=== PATIENT | female | born 1995 | race African-American/Black ===

== ENCOUNTER 2016-10-30 11:01 | Emergency (ER) | payer MEDICAID ==
[~2016-10-30] VITALS: Ht 152.4 cm; Wt 44.5 kg
[~2016-10-30 11:01] MED LIST: FAMO-119 PO; FAMO20TA5 PO; GABA600T2 PO; NITR-65 PO; PHEN200T27 PO; PRD20T PO; SUCR1ORA5 PO; VNL37.5T PO
[2016-10-30 11:54] VITALS: BP 127/97
--- NOTE | 2016-10-30 13:05 | ED Abdominal Pain ---
General Chief Complaint: Abdominal/GI Problems Stated Complaint: ABD PAIN, HEADACHE Nursing Triage Note: States having diffuse abd pain starting this am. Denies n/v/d fever or urinary sx. Sepsis Screen: No Definite Risk Source of Information: Patient, Family (mom) Exam Limitations: No Limitations History of Present Illness Time Seen By Provider: 12:57 Initial Comments Patient brought to the ER by primary conveyance and her mother. She complained of pain on her left side as well as in her superpubic region is colicky in nature comes and goes and changes position every time. She is a not on control or any meds. She has no past medical history of note. Her doctor first daughter was born at 34 weeks and spent 31 days in the NICU for prematurity. She has no surgical history. Patient was unaware of her prior to her ER visit. She denies dysuria or discharge. She has no vaginal bleeding. Last menstrual period is September 16. This puts her at 6 weeks and 2 days. Allergies and Home Medications Allergies Coded Allergies: NSAIDS (Non-Steroidal Anti-Inflamma (Unverified Allergy, Unknown, 02/04/14) Home Medications Famotidine 20 Mg Tablet, 20 MG PO BID, #30 Ref 0 Prescribed by: GELACIO WHITLOCK on 12/23/14 2254 Gabapentin 600 Mg Tablet, 1 TAB PO BID, #60 (Reported) Sucralfate 1 Gm/10 Ml Oral.susp, 1 GM PO QID, #1 Ref 0 Prescribed by: GELACIO WHITLOCK on 12/23/14 2254 Review of Systems Constitutional: No chills, No diaphoresis, No fever, No malaise EENTM: No Blurred Vision, No Ear Pain Respiratory: Denies Cough, Denies Shortness of Air, Denies Wheezing Cardiovascular: Denies Chest Pain, Denies Edema Gastrointestinal: See HPI, Denies Abdomen Distended, Abdominal Pain, Denies Constipated, Denies Diarrhea, Denies Nausea, Denies Poor Appetite, Denies Poor Fluid Intake, Denies Vomiting Genitourinary: Denies Burning, Denies Discharge, Denies Drainage, Denies Hematuria, Denies Other (vaginal bleeding) Musculoskeletal: No back pain, No joint pain Skin: No pruritus, No rash Psychiatric/Neurological: Denies Headache, Denies Numbness, Denies Paresthesia Past Ukekhzc-Qzhzko-Tijyrp Hx Patient Social History Alcohol Use: Denies Use Recreational Drug Use: No Smoking Status: Never a Smoker 2nd Hand Smoke Exposure: No Recent Foreign Travel: No Contact w/Someone Who Travel: No Recent Infectious Disease Expo: No Recent Hopitalizations: No Immunizations Up To Date Tetanus Booster (TDap): More than 5yrs PED Vaccines UTD: Yes Seasonal Allergies Seasonal Allergies: No Surgeries HX Surgeries: Yes Surgeries: Ear Surgery Respiratory Hx Respiratory Disorders: Yes Respiratory Disorders: Asthma Cardiovascular Hx Cardiac Disorders: No Neurological Hx Neurological Disorders: Yes Neurological Disorders: Headaches /Migraines Genitourinary Hx Genitourinary Disorders: No Gastrointestinal Hx Gastrointestinal Disorders: Yes (CHRONIC EPIGASTRIC PAIN) Musculoskeletal Hx Musculoskeletal Disorders: No Endocrine Hx Endocrine Disorders: No HEENT HX ENT Disorders: No Cancer Hx Cancer: No Psychosocial Hx Psychiatric Problems: Yes Behavioral Health Disorders: Depression Integumentary HX Skin/Integumentary Disorder: No Blood Transfusions Hx Blood Disorders: No Family Medical History Significant Family History: No Pertinent Family Hx Physical Exam Vital Signs VS - Last 72 Hours, by Label 10/30/16 11:54 Temp 97.4 Pulse 83 Resp 18 B/P (MAP) 127/97 Pulse Ox 99 Capillary Refill : Less Than 3 Seconds General Appearance: WD/WN, no apparent distress HEENT: PERRL/EOMI, pharynx normal (mucosa is dry) Respiratory: lungs clear, normal breath sounds Cardiovascular: normal peripheral pulses, regular rate, rhythm, no edema Peripheral Pulses: 4+ Dorsalis Pedis (R), 4+ Left Dors-Pedis (L) Gastrointestinal: normal bowel sounds, non tender, soft Extremities: non-tender, no pedal edema, normal capillary refill Back: normal inspection, no CVA tenderness Neurologic/Psychiatric: alert, oriented x 3 Skin: normal color, warm/dry Progress/Results/Core Measures Results/Orders Lab Results Laboratory Tests Test 10/30/16 11:51 Range/Units Urine Color YELLOW Urine Clarity SLIGHTLY CLOUDY Urine pH 6 5-9 Urine Specific Delta 1.020 1.016-1.022 Urine Protein 2+ H NEGATIVE Urine Glucose (UA) NEGATIVE NEGATIVE Urine Ketones NEGATIVE NEGATIVE Urine Nitrite NEGATIVE NEGATIVE Urine Bilirubin NEGATIVE NEGATIVE Urine Urobilinogen 4 H NORMAL MG/DL Urine Leukocyte Esterase 1+ H NEGATIVE Urine RBC (Auto) 1+ H NEGATIVE Urine RBC NONE /HPF Urine WBC RARE /HPF Urine Squamous Epithelial Cells 25-50 H /HPF Urine Crystals NONE /LPF Urine Bacteria FEW H /HPF Urine Casts NONE /LPF Urine Mucus MODERATE H /LPF Urine Culture Indicated NO My Orders Orders - MEME WEI Ns Iv 500 Ml (Sodium Chloride 0.9%) (10/30/16 13:10) Medications Given in ED Current Medications Medications Dose Ordered Sig/Avtar Route Start Time Stop Time Status Last Admin Dose Admin Sodium Chloride 500 ml @ 0 mls/hr Q0M ONCE IV 10/30/16 13:10 10/30/16 13:12 DC 10/30/16 13:19 500 MLS/HR Vital Signs/I&O Vital Sign - Last 12Hours 10/30/16 11:54 Temp 97.4 Pulse 83 Resp 18 B/P (MAP) 127/97 Pulse Ox 99 Blood Pressure Mean: 107 Point of Care Testing Urine -Bedside: Positive Progress Note #1: Time: 13:17 Progress Note UTI versus round leg pain. The patient's only 6 weeks by LMP. We will allow her to follow up with [facility] and establish her OB care. She is Geronimo seen there for medical care. There is no vaginal bleeding or discharge or other reason to do further extensive exams or ultrasound this time. Progress Note #2: Time: 18:48 Progress Note Patient told the nurse that she declined to wait around for the results of her urinalysis because she was hungry and so she left AMA. Her urinalysis was negative for infection. She already has plans in place to follow up with her primary care and establish for OB care at [facility] so there is really nothing further to be done at that time. Departure Impression Impression: Primary Impression: Qualified Codes: Z3A.01 - Less than 8 weeks gestation of Additional Impression: Colicky abdominal pain Disposition: 01 HOME, SELF-CARE (AMA) Condition: Stable Departure-Patient Inst. Decision time for Depature: 18:49 Referrals: [facility] (PCP/Family) Primary Care Physician Patient Instructions: No Instuctions Given Scripts Vit/Iron Fumarate/FA ( Vitamins Tablet) 1 Each Tablet 1 EACH PO DAILY for 30 Days, #30 TAB 0 Refills Prov: MEME WEI 10/30/16 Copy Copies To 1: NESHA POWELL DO MEME WEI Oct 30, 2016 13:05
[2016-10-30] MEDS ORDERED: NS IV 500 ML 500 ML IV ONE (13:10)
[2016-10-30 13:25] LABS: BILIRUBIN,URINE NEGATIVE (NEGATIVE); KETONES,URINE NEGATIVE (NEGATIVE); LEUKOCYTE ESTERASE ,URINE 1+ (NEGATIVE); NITRITE,URINE NEGATIVE (NEGATIVE); PH,URINE 6 (5-9); PROTEIN,URINE 2+ (NEGATIVE); SQUAMOUS EPITHELIAL CELL,UR 25-50 /HPF; UROBILINOGEN,URINE 4 MG/DL (NORMAL); WBC,URINE RARE /HPF
[2016-10-30] MEDS ORDERED: PREN1TAB19 PO (18:50)
== END 2016-10-30 13:55 | disposition left against medical advice (07) ==
LOC: EDUNIT# 11:01 → ER 11:04
DX: R10.84 Generalized abdominal pain (principal); J45.909 Unspecified asthma, uncomplicated; G43.909 Migraine, unspecified, not intractable, without status migrainosus; F32.9 Major depressive disorder, single episode, unspecified; Z98.890 Other specified postprocedural states; Z33.1 Pregnant state, incidental
CPT/HCPCS: 81000; 84703

== ENCOUNTER 2016-12-10 14:18 | Emergency (ER) | payer MEDICAID ==
[~2016-12-10] VITALS: Ht 154.9 cm; Wt 54.4 kg
[~2016-12-10 14:18] MED LIST changes: +PREN1TAB19 PO
--- OUTSIDE RECORDS SUMMARY | 2016-12-10 14:31 | XMS REPORT | Clinical Summary ---
Author Author [facility] Organization [facility] Address Unknown Phone Unavailable Care Team Providers Care Computer Operations Specialist Name Role Phone PCP Unavailable Source Comments Some departments are not documenting in the electronic medical record. If you do not see the information that you expected, contact Release of Information in the Health Information Management department at [phone] for further assistance in locating additional records.[facility] Allergies Active Allergy Reactions Severity Noted Date Comments Nsaids (Non-Steroidal ANAPHYLAXIS 10/23/2013 Anti-Inflammatory Drug) Sumatriptan-Naproxen UNKNOWN 07/26/2012 Current Medications Prescription Sig. Disp. Refills Start End Date Status Date imiquimod(+) (ALDARA) 5 % Apply to affected area 4 Each 3 09/20/19 Active topical creamIndications: three times weekly. 14 Keloid VENLAFAXINE HCL (EFFEXOR Take by mouth. Active PO) GABAPENTIN (NEURONTIN PO) Take by mouth. Active Active Problems No known active problems Social History Tobacco Use Types Packs/Day Years Used Date Current Every Day Smoker Cigarettes 0.25 Smokeless Tobacco: Never Used Tobacco Cessation: Counseling Given: No Alcohol Use Drinks/Week oz/Week Comments No Sex Assigned at Date Recorded Not on file Last Filed Vital Signs Vital Sign Reading Time Taken Blood Pressure 104/65 10/06/2014 1:37 PM CDT Pulse 81 10/06/2014 1:37 PM CDT Temperature 36.7 C (98.1 F) 10/06/2014 1:37 PM CDT Respiratory Rate - - Oxygen Saturation 99% 10/06/2014 1:37 PM CDT Inhaled Oxygen - - Concentration Weight 45.8 kg (101 lb) 10/06/2014 1:37 PM CDT Height 152.4 cm (5') 10/23/2013 10:23 AM CDT Body Mass Index 19.73 10/06/2014 1:37 PM CDT Plan of Treatment Health Maintenance Due Date Last Done Comments PHYSICAL (COMPREHENSIVE) 2001 EXAM HPV VACCINES (#1) 2005 PERTUSSIS VACCINE 2005 TETANUS VACCINE 2011 CERVICAL CANCER SCREENING 2015 INFLUENZA VACCINE 12/03/2016 Results Not on filefrom Last 3 Months
--- OUTSIDE RECORDS SUMMARY | 2016-12-10 14:31 | XMS REPORT ---
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 Problem Generalized anxiety disorder F41.1 Active Problem Pain of left hand M79.642 Active Problem Dysthymic disorder F34.1 Active Problem Menorrhagia with regular cycle N92.0 Active Problem Anxiety F41.9 Active Problem Pain in right hand M79.641 Active Problem Primary insomnia F51.01 Active Assessment Mood altered F39 Active Problem Irregular menses N92.6 Active Problem Keloid scar L91.0 Active Problem Insomnia, unspecified G47.00 Active Medications Medication Code System Code Instructions Start Date End Date Status Dosage BusPIRone HCl [facility] [address]-47 10 mg Orally Twice a day for anxiety October 29, 2015 1 tablet Amitriptyline HCl [facility] [address]-76 50 MG Orally Once a day at bedtime 1 tablet Omeprazole [facility] [address]-67 40 mg Orally Once a day 1 capsule Neurontin [facility] [address]-68 600 MG Orally 2 times a day 1 tablet Ortho Tri-Cyclen (28) [facility] [address]-65 0.18/0.215/0.25 MG-35 MCG Orally Once a day 1 tablet Procedures Procedure Coding System Code Date Office Visit, Est Pt., Level 5 CPT-4 76546 Nov 05, 2015 Vital Signs Date/Time: Nov 05, 2015 Cardiac Monitoring Heart Rate 80 bpm Weight 97.9 lbs Height 60 in BMI 19.12 Index Blood Pressure Diastolic 68 mmHg Blood Pressure Systolic 100 mmHg Results No Known Results Summary Purpose [employer] Submission
--- OUTSIDE RECORDS SUMMARY | 2016-12-10 14:31 | XMS REPORT | Continuity of Care Document ---
Author Author [employer] Organization [facility] Address Unknown Phone Unavailable Care Team Providers Care Immigration Guard Name Role Phone [employer] Unavailable Unavailable Problems Medications Allergies, Adverse Reactions, Alerts Immunizations Results Vital Signs Encounters Location Location Details Encounter Type Encounter Number Reason For Visit Attending Provider ADM Date DC Date Status Source [facility] CLI [id number] keloid rt ear Saran Rast 12/23/201112/22 Active [facility] Procedures Plan of Care Social History Assessment and Plan Family History Value Date Source Advance Directives Order Name Results Value Date Source
--- OUTSIDE RECORDS SUMMARY | 2016-12-10 14:31 | XMS REPORT ---
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 Problem Anxiety F41.9 Active Problem Dyspepsia R10.13 Active Problem Dysthymic disorder F34.1 Active Problem Generalized anxiety disorder F41.1 Active Problem Dysthymia F34.1 Active Problem Primary insomnia F51.01 Active Problem Menorrhagia with regular cycle N92.0 Active Problem Pain of left hand M79.642 Active Problem Pain in right hand M79.641 Active Problem Irregular menses N92.6 Active Problem Keloid scar L91.0 Active Problem Insomnia, unspecified G47.00 Active Problem Headache R51 Active Medications Medication Code System Code Instructions Start Date End Date Status Dosage Remeron [facility] [address]-68 15 MG Orally Once a day Dec 05, 2015/2 tablet Results No Known Results Summary Purpose [employer] Submission
--- OUTSIDE RECORDS SUMMARY | 2016-12-10 14:32 | XMS REPORT ---
Author DARYL Pete Organization [employer] Address Unknown Phone Unavailable Care Team Providers Care Sizer Hand Name Role Phone DARYL IGLESIAS CP Unavailable Allergies No Known Allergies Problems Problem [...] Active Problem Primary insomnia F51.01 Active Assessment Dysthymic disorder F34.1 Active Problem Irregular menses N92.6 Active Problem Keloid scar L91.0 Active Assessment Generalized anxiety disorder F41.1 Active Problem Insomnia, unspecified G47.00 Active Medications No Known Medications Procedures Procedure Coding System Code Date Psychotherapy, patient &/family, 30 minutes, established patient CPT-4 36676 October 15, 2015 Results No Known Results Summary Purpose [employer] Submission
--- OUTSIDE RECORDS SUMMARY | 2016-12-10 14:32 | XMS REPORT ---
Author Author GLORIA MOHR [facility] [employer] Address Unknown Phone Unavailable Care Team Providers Care Clinical Trial Associate Name Role Phone GLORIA MOHR CP Unavailable Allergies, Adverse Reactions, Alerts Substance [...] Active Problem Primary insomnia F51.01 Active Assessment Anxiety F41.9 Active Problem Irregular menses N92.6 Active Assessment Generalized anxiety disorder F41.1 Active Problem Keloid scar L91.0 Active Assessment Dysthymic disorder F34.1 Active Problem Insomnia, unspecified G47.00 Active Medications No Known Medications Procedures Procedure Coding System Code Date Psychoanalysis, new patient CPT-4 89493 Nov 05, 2015 Results No Known Results Summary Purpose [employer] Submission
--- OUTSIDE RECORDS SUMMARY | 2016-12-10 14:32 | XMS REPORT ---
Author Author HUAN VARELA Organization [employer] Address Unknown Phone Unavailable Care Team Providers Care Manager Professional Development Name Role Phone HUAN VARLEA CP Unavailable Allergies No Known Allergies Problems Problem Type Condition ICD-9 Code Onset Dates Condition Status Problem Headache 784.0 Active Problem Insomnia, unspecified 780.52 Active Problem Hereditary elliptocytosis 282.1 Active Problem Irregular menstrual cycle 626.4 Active Problem Other and unspecified endocrine, nutritional, metabolic, and immunity disorders V77.99 Active Problem Keloid scar 701.4 Active Medications Medication Code System Code Instructions Start Date End Date Status Dosage Sudafed 12 Hour [facility] [address]-29 120 MG Orally every 12 hrs October 23, 2014 1 tablet as needed Results No Known Results Summary Purpose [employer] Submission
--- OUTSIDE RECORDS SUMMARY | 2016-12-10 14:32 | XMS REPORT ---
Author Author [facility] [employer] Address Unknown Phone Unavailable Care Team Providers Care Fish Grader Name Role Phone [facility] Unavailable Allergies, Adverse Reactions, Alerts Substance Reaction Event Type Treximet Info Not Available Drug Allergy Nsaids THROAT WAS SWELLING UP LAST TIME IN THE HOSPITAL Non Drug Allergy Problems Problem Type Condition Code Onset Dates Condition Status Assessment Encounter for screening for malignant neoplasm of cervix Z12.4 Active Assessment Encounter for Depo-Provera contraception Z30.42 Active Assessment Encounter for immunization Z23 Active Problem Headache 784.0 Active Assessment Keloid scar L91.0 Active Problem Insomnia, unspecified 780.52 Active Assessment Uterine tenderness N94.9 Active Assessment Routine screening for STI (sexually transmitted infection) Z11.3 Active Problem Hereditary elliptocytosis 282.1 Active Problem Irregular menstrual cycle 626.4 Active Assessment Well woman exam Z01.419 Active Problem Other and unspecified endocrine, nutritional, metabolic, and immunity disorders V77.99 Active Problem Keloid scar 701.4 Active Assessment Chest pain, unspecified R07.9 Active Assessment Dyspepsia K30 Active Assessment Irregular menses N92.6 Active Assessment Evaluation for contraceptive implant Z30.018 Active Assessment Depression, unspecified depression type F32.9 Active Assessment Other fatigue R53.83 Active Assessment Surveillance of contraceptive injection Z30.42 Active Assessment Cold intolerance R68.89 Active Assessment Anxiety F41.9 Active Assessment Tobacco use Z72.0 Active Medications Medication Code System Code Instructions Start Date End Date Status Dosage Depo-Provera [facility] [address]-23 150 MG/ML Intramuscular Every 3 months 1 ml Neurontin [facility] [address]-83 600 MG Orally 2 times a day 1 tablet Procedures Procedure Coding System Code Date TRICHOMONAS ASSAY W/OPTIC CPT-4 85627 May 07, 2015 ASSAY THYROID STIM HORMONE CPT-4 78378 May 07, 2015 URINE TEST CPT-4 37464 May 07, 2015 SPECIMEN HANDLING CPT-4 48876 May 07, 2015 THER/PROPH/DIAG INJ, SC/IM CPT-4 86027 May 07, 2015 DEPO PROVERA (150 MG/ML) CPT-4 J1050 May 07, 2015 No Charge CPT-4 66228 May 07, 2015 VENIPUNCT, ROUTINE* CPT-4 16155 May 07, 2015 Preventive Care Est Pt. Age 18-39 CPT-4 49241 May 07, 2015 SINGLE IMMUNIZATION ADMIN CPT-4 29466 May 07, 2015 FLUARIX QUAD (3 & UP)-GSK-2014 CPT-4 25893 May 07, 2015 Vital Signs Date/Time: May 07, 2015 Temperature 99.1 F Weight 99.5 lbs Height 60 in BMI 19.43 Index Blood Pressure Diastolic 68 mmHg Blood Pressure Systolic 98 mmHg Cardiac Monitoring Heart Rate 100 bpm Results Name Result Date Reference Range Unit Abnormality Flag TEST, URINE (IN HOUSE) ----RESULTS negative [id number] ----Lot # [id number] ----Control + [id number] ----Exp date [id number] ROUTINE VENIPUNCTURE Immunizations Vaccine Administration Date FLUARIX QUAD (3 & UP)-GSK-2014May 07, 2015 Summary Purpose [employer]ClinicalWorks Submission
--- OUTSIDE RECORDS SUMMARY | 2016-12-10 14:33 | XMS REPORT ---
Author Author HUAN VARELA [facility] [employer] Address Unknown Phone Unavailable Care Team Providers Care Consolidator Name Role Phone HUAN VARELA Unavailable Allergies, Adverse Reactions, Alerts Substance Reaction Event Type Treximet Info Not Available Drug Allergy Nsaids THROAT WAS SWELLING UP LAST TIME IN THE HOSPITAL Non Drug Allergy Problems Problem Type Condition Code Onset Dates Condition Status Assessment Epigastric pain R10.13 Active Assessment Encounter for Depo-Provera contraception Z30.42 Active Assessment Dyspepsia K30 Active Assessment Allergic rhinitis J30.9 Active Problem Headache 784.0 Active Problem Insomnia, unspecified 780.52 Active Problem Hereditary elliptocytosis 282.1 Active Problem Irregular menstrual cycle 626.4 Active Assessment Encounter for contraceptive management, unspecified Z30.9 Active Problem Other and unspecified endocrine, nutritional, metabolic, and immunity disorders V77.99 Active Problem Keloid scar 701.4 Active Medications Medication Code System Code Instructions Start Date End Date Status Dosage PredniSONE [facility] [address]-05 10 MG Orally Twice a day Jan 28, 2015Feb 1 tablet with food or milk Omeprazole [facility] [address]-37 20 MG Orally Once a day Jan 28, 2015 1 capsule Depo-Provera [facility] [address]-59 150 MG/ML Intramuscular 1 ml Neurontin [facility] [address]-91 600 MG Orally 2 times a day 1 tablet Procedures Procedure Coding System Code Date IMMUNOASSAY,INFECTIOUS AGENT CPT-4 51950 Jan 28, 2015 Office Visit, Est Pt., Level 3 CPT-4 58531 Jan 28, 2015 URINE TEST CPT-4 00983 Jan 28, 2015 THER/PROPH/DIAG INJ, SC/IM CPT-4 38963 Jan 28, 2015 DEPO PROVERA (150 MG/ML) CPT-4 J1050 Jan 28, 2015 Vital Signs Date/Time: Jan 28, 2015 Temperature 97.0 F Weight 101.0 lbs Height 60 in BMI 19.72 Index Blood Pressure Diastolic 68 mmHg Blood Pressure Systolic 102 mmHg Cardiac Monitoring Heart Rate 70 bpm Results Name Result Date Reference Range Unit Abnormality Flag TEST, URINE (IN HOUSE) Summary Purpose [employer]ClinicalWorks Submission
--- OUTSIDE RECORDS SUMMARY | 2016-12-10 14:33 | XMS REPORT ---
Author Author HUAN VARELA [facility] [employer] Address Unknown Phone Unavailable Care Team Providers Care Laserist Name Role Phone HUAN VARELA Unavailable Allergies, [...] Active Problem Primary insomnia F51.01 Active Assessment Pain of left hand M79.642 Active Assessment Dyspepsia R10.13 Active Assessment Pain in right hand M79.641 Active Assessment Primary insomnia F51.01 Active Problem Irregular menses N92.6 Active Assessment Anxiety F41.9 Active Problem Keloid scar L91.0 Active Assessment Menorrhagia with regular cycle N92.0 Active Problem Insomnia, unspecified G47.00 Active Medications Medication Code System Code Instructions Start Date End Date Status Dosage Omeprazole [facility] [address]-50 40 mg Orally Once a day 1 capsule Amitriptyline HCl [facility] [address]-88 50 MG Orally Once a day at bedtime 1 tablet Lexapro [facility] [address]-84 10 mg Orally Once a day October 15, 2015 1 tablet Ortho Tri-Cyclen (28) [facility] [address]-27 0.18/0.215/0.25 MG-35 MCG Orally Once a day 1 tablet Neurontin [facility] [address]-97 600 MG Orally 2 times a day 1 tablet Procedures Procedure Coding System Code Date Office Visit, Est Pt., Level 4 CPT-4 43481 October 15, 2015 Vital Signs Date/Time: October 15, 2015 Cardiac Monitoring Heart Rate 92 bpm Weight 96.4 lbs Height 60 in Blood Pressure Diastolic 54 mmHg Blood Pressure Systolic 98 mmHg Results No Known Results Summary Purpose [employer]Works Submission
--- OUTSIDE RECORDS SUMMARY | 2016-12-10 14:33 | XMS REPORT ---
Author Author HUAN VARELA [facility] [employer] Address Unknown Phone Unavailable Care Team Providers Care Veneer Production Machine Operator Name Role Phone HUAN VARELA CP Unavailable [...] F41.9 Active Problem Irregular menses N92.6 Active Problem Keloid scar L91.0 Active Problem Insomnia, unspecified G47.00 Active Medications Medication Code System Code Instructions Start Date End Date Status Dosage Amitriptyline HCl [facility] [address]-81 50 MG Orally Once a day at bedtime 1 tablet BusPIRone HCl [facility] [address]-95 10 mg Orally Twice a day for anxiety October 29, 2015 1 tablet Omeprazole [facility] [address]-02 40 mg Orally Once a day 1 capsule Ortho Tri-Cyclen (28) [facility] [address]-14 0.18/0.215/0.25 MG-35 MCG Orally Once a day 1 tablet Neurontin [facility] [address]-93 600 MG Orally 2 times a day 1 tablet Procedures Procedure Coding System Code Date Office Visit, Est Pt., Level 4 CPT-4 94579 October 29, 2015 Vital Signs Date/Time: October 29, 2015 Cardiac Monitoring Heart Rate 74 bpm Weight 99.0 lbs Height 60 in BMI 19.33 Index Blood Pressure Diastolic 67 mmHg Blood Pressure Systolic 103 mmHg Results No Known Results Summary Purpose [employer]ClinicalWorks Submission
--- NOTE | 2016-12-10 15:27 | ED Abdominal Pain ---
General Chief Complaint: -Female Stated Complaint: LEFT SIDE PAIN/11 WKS Source of Information: Patient Exam Limitations: No Limitations History of Present Illness Time Seen By Provider: 15:24 Initial Comments The patient is a 21-year-old black female. She estimates she is 11 weeks at this time. This morning she began having left lower quadrant abdominal pain. This is her second child her first his age 2 and was 2 lbs. 5 oz. at . She reports that she had no particular belly pain or emesis during the first . Today she developed this left lower quadrant pain without dysuria. There is been no vaginal blood. She would not describe the pain as crampy. She also reports the very recent onset of nausea and she vomited once this morning. Timing/Duration: 4-6 Hours Severity/Quality: Mild, Moderate Location: LLQ Radiation: No Radiation Activities at Onset: None Associated Symptoms: Denies Symptoms Allergies and Home Medications Allergies Coded Allergies: NSAIDS (Non-Steroidal Anti-Inflamma (Unverified Allergy, Unknown, 02/04/14) Home Medications Famotidine 20 Mg Tablet, 20 MG PO BID, #30 Ref 0 Prescribed by: GELACIO WHITLOCK on 12/23/142253 Gabapentin 600 Mg Tablet, 1 TAB PO BID, #60 (Reported) Vit/Iron Fumarate/FA 1 Each Tablet, 1 EACH PO DAILY for 30 Days, #30 Ref 0 Prescribed by: MEME WEI on 10/30/16 1850 Sucralfate 1 Gm/10 Ml Oral.susp, 1 GM PO QID, #1 Ref 0 Prescribed by: GELACIO WHITLOCK on 12/23/142253 Review of Systems Constitutional: see HPI EENTM: No Symptoms Reported Respiratory: No Symptoms Reported Cardiovascular: No Symptoms Reported Gastrointestinal: Nausea, Vomiting Genitourinary: No Symptoms Reported Musculoskeletal: no symptoms reported Skin: no symptoms reported Psychiatric/Neurological: No Symptoms Reported Endocrine: No Symptoms Reported Hematologic/Lymphatic: No Symptoms Reported Past Rsqdwse-Ywjgfj-Cshmbq Hx Patient Social History 2nd Hand Smoke Exposure: No Recent Foreign Travel: No Contact w/Someone Who Travel: No Recent Hopitalizations: No Immunizations Up To Date Tetanus Booster (TDap): More than 5yrs PED Vaccines UTD: Yes Seasonal Allergies Seasonal Allergies: No Surgeries History of Surgeries: Yes Surgeries: Ear Surgery Respiratory History of Respiratory Disorde: Yes Respiratory Disorders: Asthma Cardiovascular History of Cardiac Disorders: No Neurological History of Neurological Disord: Yes Neurological Disorders: Headaches /Migraines Gastrointestinal History of Gastrointestinal Di: Yes (CHRONIC EPIGASTRIC PAIN) Musculoskeletal History of Musculoskeletal Dis: No Endocrine History of Endocrine Disorders: No Cancer History of Cancer: No Psychosocial History of Psychiatric Problem: Yes Behavioral Health Disorders: Depression Integumentary History of Skin or Integumenta: No Blood Transfusions History of Blood Disorders: No Family Medical History Significant Family History: No Pertinent Family Hx Physical Exam Vital Signs Capillary Refill : General Appearance: mild distress HEENT: normal ENT inspection Neck: non-tender, full range of motion, supple, normal inspection Respiratory: chest non-tender, lungs clear, normal breath sounds, no respiratory distress, no accessory muscle use Cardiovascular: normal peripheral pulses, regular rate, rhythm, no edema, no gallop, no JVD, no murmur Gastrointestinal: normal bowel sounds, non tender, soft, no organomegaly, no pulsatile mass Extremities: normal range of motion, non-tender, normal inspection, no pedal edema, no calf tenderness, normal capillary refill, pelvis stable Back: normal inspection Neurologic/Psychiatric: electron microscopist II-XII nml as tested, no motor/sensory deficits, alert, normal mood/affect, oriented x 3 Skin: normal color, warm/dry Lymphatic: no adenopathy Progress/Results/Core Measures Results/Orders Lab Results Laboratory Tests Test 12/10/16 15:20 Range/Units White Blood Count 9.1 4.3-11.0 10^3/uL Red Blood Count 4.74 4.35-5.85 10^6/uL Hemoglobin 12.9 11.5-16.0 G/DL Hematocrit 39 35-52 % Mean Corpuscular Volume 83 80-99 FL Mean Corpuscular Hemoglobin 27 25-34 PG Mean Corpuscular Hemoglobin Concent 33 32-36 G/DL Red Cell Distribution Width 22.1 H 10.0-14.5 % Platelet Count 353 130-400 10^3/uL Mean Platelet Volume 7.4-10.4 FL Neutrophils (%) (Auto) 59 42-75 % Lymphocytes (%) (Auto) 32 12-44 % Monocytes (%) (Auto) 6 0-12 % Eosinophils (%) (Auto) 3 0-10 % Basophils (%) (Auto) 0 0-10 % Neutrophils # (Auto) 5.4 1.8-7.8 X 10^3 Lymphocytes # (Auto) 2.9 1.0-4.0 X 10^3 Monocytes # (Auto) 0.6 0.0-1.0 X 10^3 Eosinophils # (Auto) 0.3 0.0-0.3 10^3/uL Basophils # (Auto) 0.0 0.0-0.1 10^3/uL Urine Color YELLOW Urine Clarity SLIGHTLY CLOUDY Urine pH 6.5 5-9 Urine Specific [place] 1.015 L 1.016-1.022 Urine Protein 2+ H NEGATIVE Urine Glucose (UA) NEGATIVE NEGATIVE Urine Ketones 1+ H NEGATIVE Urine Nitrite NEGATIVE NEGATIVE Urine Bilirubin NEGATIVE NEGATIVE Urine Urobilinogen 1 NORMAL MG/DL Urine Leukocyte Esterase 1+ H NEGATIVE Urine RBC (Auto) 1+ H NEGATIVE Urine RBC RARE /HPF Urine WBC 0-2 /HPF Urine Squamous Epithelial Cells 5-10 /HPF Urine Crystals NONE /LPF Urine Bacteria FEW H /HPF Urine Casts NONE /LPF Urine Mucus SMALL H /LPF Urine Culture Indicated NO My Orders Orders - DAVE NY MD Cbc With Automated Diff (12/10/16 14:43) Hcg,Quantitative (12/10/16 14:43) Ua Culture If Indicated (12/10/16 14:43) Us Ob Single Fetus<14 [id number] (12/10/16 14:43) Departure Impression Impression: Primary Impression: left lower quadrant abdominal pain Additional Impression: 11 weeks gestation of Disposition: 01 HOME, SELF-CARE Condition: Stable/Unchanged Departure-Patient Inst. Referrals: [facility] (PCP/Family) Primary Care Physician Add. Discharge Instructions: All discharge instructions reviewed with patient and/or family. Voiced understanding. Abdominal sonogram confirms intrauterine estimated gestation 11 weeks 1 day. It is time to establish with your obstetrics provider. If further problems with nausea and vomiting they will be able to help you DAVE NY MD Dec 10, 2016 15:27
[2016-12-10 15:29] LABS: BILIRUBIN,URINE NEGATIVE (NEGATIVE); KETONES,URINE 1+ (NEGATIVE); LEUKOCYTE ESTERASE ,URINE 1+ (NEGATIVE); NITRITE,URINE NEGATIVE (NEGATIVE); PH,URINE 6.5 (5-9); PROTEIN,URINE 2+ (NEGATIVE); UROBILINOGEN,URINE 1 MG/DL (NORMAL)
[2016-12-10 15:38] LABS: BASOPHILS % (AUTO) 0 % (0-10); EOSINOPHILS # (AUTO) 0.3 10^3/uL (0.0-0.3); EOSINOPHILS % (AUTO) 3 % (0-10); LYMPHOCYTES # (AUTO) 2.9 X 10^3 (1.0-4.0); LYMPHOCYTES % (AUTO) 32 % (12-44); MEAN CORPUSCULAR HEMOGLOBIN 27 PG (25-34); MEAN CORPUSCULAR HGB CONC 33 G/DL (32-36); MEAN CORPUSCULAR VOLUME 83 FL (80-99); MONOCYTES # (AUTO) 0.6 X 10^3 (0.0-1.0); MONOCYTES % (AUTO) 6 % (0-12); NEUTROPHILS # (AUTO) 5.4 X 10^3 (1.8-7.8); NEUTROPHILS % (AUTO) 59 % (42-75); PLATELET COUNT 353 10^3/uL (130-400); RED BLOOD COUNT 4.74 10^6/uL (4.35-5.85); RED CELL DISTRIBUTION WIDTH 22.1 % (10.0-14.5); WHITE BLOOD COUNT 9.1 10^3/uL (4.3-11.0)
[2016-12-10 15:49] LABS: WBC,URINE 0-2 /HPF
--- NOTE | 2016-12-10 16:07 | Diagnostic Imaging Report ---
PROCEDURE: US OB SINGLE FETUS <14 WKS. TECHNIQUE: Multiple real-time grayscale images were obtained over the gravid uterus in various projections. INDICATION: Left-sided pain. Ultrasound for dates. FINDINGS: There is a single live intrauterine fetus present. [place]-rump length of 4.2 cm consistent with 11 week 1 day gestation. heartbeat of 179 beats per minute. No evidence of subchronic hemorrhage. Left ovary is visualized with a 1.8 cm cyst. There is normal blood flow to the left ovary. Right ovary is not identified. IMPRESSION: 11 week 1 day live intrauterine with sonographic EDC of 06/30/2017. No evidence of subchronic hemorrhage. Dictated by: Dictated on workstation # [id number]
[2016-12-10 16:29] VITALS: BP 116/70
== END 2016-12-10 16:29 | disposition home or self-care (01) ==
LOC: EDUNIT# 14:18 → ER 14:26
DX: O99.89 Other specified diseases and conditions complicating pregnancy, childbirth and the puerperium (principal); R10.32 Left lower quadrant pain; O99.341 Other mental disorders complicating pregnancy, first trimester; F32.9 Major depressive disorder, single episode, unspecified; O99.351 Diseases of the nervous system complicating pregnancy, first trimester; G43.909 Migraine, unspecified, not intractable, without status migrainosus; O99.511 Diseases of the respiratory system complicating pregnancy, first trimester; J45.909 Unspecified asthma, uncomplicated; Z3A.11 11 weeks gestation of pregnancy
CPT/HCPCS: 36415; 76801; 81000; 84702; 85025; 99282

== ENCOUNTER 2017-03-06 12:53 | Inpatient (IN) | payer MEDICAID ==
[2017-03-06] VITALS (13 sets, daily range): BP systolic 92–111; BP diastolic 65–76
[~2017-03-06] VITALS: Ht 152.4 cm; Wt 43.6 kg
[2017-03-06] MEDS ORDERED: D5 LR IV SOLUTION 1,000 ML IV ONE (13:15)
[2017-03-06] MEDS ORDERED: BETAMETHASONE ACE/NA PHOS 6 MG/ML (CELESTONE SOLUSPAN) ONE (13:31)
[2017-03-06] MEDS ORDERED: MAGNESIUM SULFATE DRIP 500 ML IV ONE (13:31)
--- NOTE | 2017-03-06 13:40 | History & Physical-OB/GYN ---
History of Present Illness History of Present Illness Reason for visit/HPI labor Date of Admission 03/06/17 Date Seen by Provider: Mar 06, 2017 Time Seen by Provider: 13:35 I consulted on this patient on 03/06/17 13:39 Attending Physician Finn Segovia MD Admitting Physician Imani Nuñez DO Consult This is a 22 year old at 23 1/7 weeks based on first trimester US ( states EDC 06/22 based on LMP but 07/02 based on first trimester US). records not available. Patient of dr. Segovia. Presents with complaining of contractions "every 16 seconds" since 6 am. They started further apart but are closer together and more painful. She has history of delivery at 32 weeks. States that she was on Magnesium prior to delivery and "almost ". When i asked her to clarify she said "i just felt like i was dying". States that she never had respiratory depression or cessation of heart. She did, however, then deliver at 32 weeks. Patient herself was premature and was at [facility] for 2 months following delivery. Was to have been on [place] this , but, per, her Primary Ob "did not want a shot" so he gave her a prescription for progesterone and she has not filled this. She understands that at 23 1/7 weeks, that there is a very high morbidity and mortality, but "I want everything done". the father of the baby in in [place] and she would like to be transferred there. Allergies and Home Medications Allergies Coded Allergies: NSAIDS (Non-Steroidal Anti-Inflamma (Unverified Allergy, Unknown, 02/04/14) Home Medications Famotidine 20 Mg Tablet, 20 MG PO BID, #30 Ref 0 Prescribed by: GELACIO WHITLOCK on 12/23/14 2254 Gabapentin 600 Mg Tablet, 1 TAB PO BID, #60 (Reported) Vit/Iron Fumarate/FA 1 Each Tablet, 1 EACH PO DAILY for 30 Days, #30 Ref 0 Prescribed by: MEME WEI on 10/30/16 1850 Sucralfate 1 Gm/10 Ml Oral.susp, 1 GM PO QID, #1 Ref 0 Prescribed by: GELACIO WHITLOCK on 12/23/14 2254 Past Mykuyob-Gnguym-Dtnxmo Hx Patient Social History Marrital Status: Number of Children: 1 Number of living children: 1 Alcohol Use: Denies Use Recreational Drug Use: No Smoking Status: Never a Smoker 2nd Hand Smoke Exposure: No Recent Foreign Travel: No Contact w/other who traveled: No Recent Hopitalizations: No Immunizations Up To Date Tetanus Booster (TDap): More than 5yrs Pediatric: Yes Seasonal Allergies Seasonal Allergies: No Surgeries Yes Ear Surgery Respiratory Yes Cardiovascular No Neurological Yes Headaches /Migraines Reproductive System : Yes Expected Date of Delivery: Jul 02, 2017 Last Menstrual Period: Mar 06, 2017 Hx : 2 Hx Para: 1 Hx Total # of Abortions (Spona: 0 Genitourinary No Gastrointestinal Yes (CHRONIC EPIGASTRIC PAIN) Musculoskeletal No Endocrine History of Endocrine Disorders: No HEENT History of HEENT Disorders: No Cancer No Psychosocial History of Psychiatric Problem: Yes Behavioral Health Disorders: Depression Integumentary History of Skin or Integumenta: No Blood Transfusions History of Blood Disorders: Yes (history of SC disease per her primary OB. Has not had crisis this . He stated that hgb was 12 and did not do electorphoresis bc of known history. Those records not available) Family Medical History Significant Family History: No Pertinent Family Hx Constitutional: no symptoms reported Expected Date of Delivery: Jul 02, 2017 LMP: Sep 16, 2016 Musculoskeletal: no symptoms reported All Other Systems Reviewed Negative Unless Noted: Yes Physical Exam Physical Exam Vital Signs Capillary Refill : Labs labs not available. Drawn today General Appearance: Moderate Distress Respiratory: Chest Non Tender, Normal Breath Sounds Cardiovascular: Regular Rate, Rhythm Gynecology/General: Other (3/ 90-100/bulging, floating) Pelvic Exam: other (see above salvador every 1 1/2 - 2 minutes. hearttones 135) Assessment/Plan Assessment and Plan 1. Active labor 2. history of delivery 3. possible history of Sickle cell disease. Plan - patient "wants everything done" Understands that there is very high morbidity and mortality at this gestational age. [facility] has accepted transfer if we deem her safe for transfer Risks of delivery, up to 75 % mortality. High morbidity including intraventricular hemorrhage, leukomalacia, NEC, severe pulmonary disease, retinopathy of prematurity, infections, neurodevelopmental impairment. She still asks for everything to be done. States has allergy to NSAIDs. but this is vague and may only be sensitivity to ibuprofen. Desires dosage of indomethacin to "do everything you can". Problems: NUÑEZ,IMANI C DO Mar 06, 2017 13:40
[2017-03-06] MEDS ORDERED: AMPICILLIN 2000 MG INJECTION (IM/IV) ONE (13:42)
[2017-03-06] MEDS ORDERED: NS (IVPB) 50 ML ONE (13:42)
[2017-03-06] MEDS ORDERED: AMPICILLIN INJECTION 2,000 MG in NS (IVPB) 50 ML IV ONE (13:45)
[2017-03-06] MEDS ORDERED: INDOMETHACIN 25 MG (INDOCIN) CAP PO ONE (13:45)
[2017-03-06] MEDS ORDERED: D5 LR IV SOLUTION 1,000 ML IV SCH ×2 (13:45→13:52)
[2017-03-06 13:56] LABS: BASOPHILS % (AUTO) 0 % (0-10); EOSINOPHILS # (AUTO) 0.2 10^3/uL (0.0-0.3); EOSINOPHILS % (AUTO) 1 % (0-10); LYMPHOCYTES # (AUTO) 1.4 X 10^3 (1.0-4.0); LYMPHOCYTES % (AUTO) 12 % (12-44); MEAN CORPUSCULAR HEMOGLOBIN 30 PG (25-34); MEAN CORPUSCULAR HGB CONC 33 G/DL (32-36); MEAN CORPUSCULAR VOLUME 90 FL (80-99); MONOCYTES # (AUTO) 0.6 X 10^3 (0.0-1.0); MONOCYTES % (AUTO) 5 % (0-12); NEUTROPHILS % (AUTO) 81 % (42-75); PLATELET COUNT 230 10^3/uL (130-400); RED BLOOD COUNT 3.86 10^6/uL (4.35-5.85); RED CELL DISTRIBUTION WIDTH 15.5 % (10.0-14.5); WHITE BLOOD COUNT 11.1 10^3/uL (4.3-11.0)
[2017-03-06 13:57] LABS: BILIRUBIN,URINE NEGATIVE (NEGATIVE); KETONES,URINE NEGATIVE (NEGATIVE); LEUKOCYTE ESTERASE ,URINE 1+ (NEGATIVE); NITRITE,URINE NEGATIVE (NEGATIVE); PH,URINE 7 (5-9); PROTEIN,URINE 2+ (NEGATIVE); UROBILINOGEN,URINE 1 MG/DL (NORMAL)
[2017-03-06] MEDS ORDERED: CALCIUM GLUC. 10% 4.65 MEQ/10 ML VIAL IV PRN (14:00)
[2017-03-06] MEDS ORDERED: MAGNESIUM 2 GM/50 ML IVPB 2 GM in MAGNESIUM 4 GM/100 ML IVPB 100 ML IV ONE (14:00)
--- OUTSIDE RECORDS SUMMARY | 2017-03-06 14:12 | XMS REPORT | Continuity of Care Document ---
Author Author [employer] Organization [facility] Address Unknown Phone Unavailable Care Team Providers Care Rivet Passer Name Role Phone [employer] Unavailable Unavailable Problems Problem Status Onset Date Classification Date Reported Comments Source Problem 01/17/2017 [facility] Medications Medication Details Route Status Patient Instructions Ordering Provider Order Date Source albuterol HFA 90 mcg/inh inhalation aerosol
</br> 2 puff, Inhaled, q4h, PRN Wheezing or Cough, # 2 inhaler, Refill(s) 0, Pharmacy : [facility] [address] [id number] [facility] 120 ACTUAT Fluticasone propionate 0.11 MG/ACTUAT Metered Dose Inhaler [Flovent ]
</br>2 puff, Inhaled, BID, While in yellow zone. Rinse mouth after use., # 1 inhaler, Refill(s) 5, Pharmacy: [facility] [id number] [place] [address] Allergies, Adverse Reactions, Alerts Immunizations Immunization Date Given Site Status Last Updated Comments Source Flu vaccine reported-w/o vaccine record 02/21/2013 Flu vaccine reported-w/o vaccine record<sup>1</sup> [place] Location History: [facility] Influenza, seasonal, injectable 04/21/2011 Left Upper Arm influenza virus, inactivated (TIV) [facility] meningococcal conjugate (MCV) 09/21/2010 Right Upper Arm meningococcal conjugate ( MCV) [facility] HPV, quadrivalent 09/21/2010 Left Upper Arm human papillomavirus (HPV) [facility] meningococcal conjugate (MCV) 11/21/2008 Right Upper Arm meningococcal conjugate ( MCV) [facility] HPV, quadrivalent 11/21/2008 Left Upper Arm human papillomavirus (HPV) [facility] Hep A, ped/adol, 2 dose 11/21/2008 Right Upper Arm hepatitis A pediatric (Hep A, Peds) [facility] human papillomavirus (HPV) 06/12/2007 human papillomavirus (HPV) [facility] tetanus/diph/pertussis(a), adult (Tdap) 06/12/2007 tetanus/diph/pertussis(a), adult (Tdap) [facility] influenza virus, inactivated (TIV) 06/12/2007 influenza virus, inactivated (TIV) [facility] hepatitis A pediatric (Hep A, Peds) 06/12/2007 hepatitis A pediatric (Hep A, Peds ) [facility] varicella virus vaccine (FELICITAS) 06/12/2007 varicella virus vaccine (FELICITAS) [facility] influenza virus, inactivated (TIV) 03/25/2006 influenza virus, inactivated (TIV) [facility] measles/mumps/rubella virus (MMR) 01/13/1999 measles/mumps/rubella virus (MMR) [facility] poliovirus vaccine, live (OPV) 01/13/1999 poliovirus vaccine, live (OPV) [facility] dipht/tetanus/pertuss(a) (DTaP) 01/13/1999 dipht/tetanus/pertuss(a) (DTaP) [facility] varicella virus vaccine (FELICITAS) 10/21/1997 varicella virus vaccine (FELICITAS) [facility] diph/haem b/pertus,whl/tetanus (DPT/Hib) 08/26/1995 diph/haem b/pertus,whl/ tetanus (DPT/Hib) [facility] measles/mumps/rubella virus (MMR) 07/19/1995 measles/mumps/rubella virus (MMR) [facility] poliovirus vaccine, live (OPV) 07/19/1995 poliovirus vaccine, live (OPV) [facility] diph/haem b/pertus,whl/tetanus (DPT/Hib) 02/11/1995 diph/haem b/pertus,whl/ tetanus (DPT/Hib) [facility] hepatitis B vaccine (Hep B) 1994 hepatitis B vaccine (Hep B) [facility] diph/pertuss,whole cell/tetanus (DPT) 1994 diph/pertuss,whole cell/tetanus ( DPT) [facility] poliovirus vaccine, live (OPV) 1994 poliovirus vaccine, live (OPV) [facility] haemophilus flu b (Hib) 1994 haemophilus flu b (Hib) [facility] diph/pertuss,whole cell/tetanus (DPT) 1994 diph/pertuss,whole cell/tetanus ( DPT) [facility] poliovirus vaccine, live (OPV) 1994 poliovirus vaccine, live (OPV) [facility] haemophilus flu b (Hib) 1994 haemophilus flu b (Hib) [facility] hepatitis B vaccine (Hep B) 1994 hepatitis B vaccine (Hep B) [facility] hepatitis B vaccine (Hep B) 1994 hepatitis B vaccine (Hep B) [facility] Results Vital Signs Encounters Location Location Details Encounter Type Encounter Number Reason For Visit Attending Provider ADM Date DC Date Status Source [facility] [id number] Saran Stauffer 05/20/2011 01/16/2017 [facility] CLI [id number] keloid rt ear Saran Stauffer 12/23/201112/22 Active [facility] Procedures Procedure Code Date Perfomer Comments Source No data available for this section [facility] Plan of Care Social History Assessment and Plan Family History Value Date Source Advance Directives Order Name Results Value Date Source
--- OUTSIDE RECORDS SUMMARY | 2017-03-06 14:12 | XMS REPORT ---
Author Author [facility]HER [facility] Address [address] [place] [address] Care Team Providers Care Architectural Draftsperson Name Role Phone SANDEEP DASALEXIS Unavailable PROBLEMS Type Condition ICD9-CM Code [id number] Code Onset Dates Condition Status SNOMED Code Problem Anxiety F41.9 Active 70303661 Problem Dyspepsia R10.13 Active 691660468 Problem Menorrhagia with regular cycle N92.0 Active 007117221 Problem Mild intermittent asthma without complication J45.20 Active 713604659 Problem Dysthymia F34.1 Active 69539833 Problem Pain in right hand M79.641 Active 471092246 Problem Pain of left hand M79.642 Active 23620116 Problem Dysthymic disorder F34.1 Active 40096950 Problem Generalized anxiety disorder F41.1 Active 95826511 Problem Headache R51 Active 887787200 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 503560543 Problem Keloid scar L91.0 Active 86328222 Problem Insomnia, unspecified G47.00 Active 648362848 Problem Irregular menses N92.6 Active 32643686 Problem Primary insomnia F51.01 Active 1245596 ALLERGIES Substance Reaction Event Type Date Status Treximet Unknown Drug Allergy May, Active Nsaids THROAT WAS SWELLING UP LAST TIME IN THE HOSPITAL Non Drug Allergy May, Active SOCIAL HISTORY Never Assessed PLAN OF CARE Activity Details Follow Up 4 Weeks Reason: VITAL SIGNS Height 60 in 2016-05-26 Weight 95.7 lbs 2016-05-26 Heart Rate 116 bpm 2016-05-26 Respiratory Rate 20 2016-05-26 BMI 18.69 kg/m2 2016-05-26 Blood pressure systolic 85 mmHg 2016-05-26 Blood pressure diastolic 60 mmHg 2016-05-26 MEDICATIONS Medication Instructions Dosage Frequency Start Date End Date Duration Status Trintellix 20 MG Orally Once a day 1 tablet 24h May, 30 day(s) Active Albuterol Sulfate 108 (90 Base) MCG/ACT Inhalation every 4 hrs 2 puff as needed 4h Apr, Active Trazodone HCl 50 MG Orally Once a day 1 tablet at bedtime as needed 24h May, 30 day(s) Active Trintellix 10 mg orally once a day 1 tablet 24h May, Active Promethazine-Codeine 6.25-10 MG/5ML Orally every 6 hrs 5 ml as needed 6h Apr, Active RESULTS No Results PROCEDURES No Known procedures IMMUNIZATIONS No Known Immunizations MEDICAL (GENERAL) HISTORY Type Description Date Medical History depression-- Medical History Hereditary elliptocytosis Surgical History Keloid Removal--Right ear
--- OUTSIDE RECORDS SUMMARY | 2017-03-06 14:12 | XMS REPORT | Clinical Summary ---
Author Author [facility] Organization [facility] Address Unknown Phone Unavailable Care Team Providers Care Side Laster Staple Name Role Phone PCP Unavailable Source Comments Some departments are not documenting in the electronic medical record. If you do not see the information that you expected, contact Release of Information in the Health Information Management department at [phone] for further assistance in locating additional records.[facility] Allergies Active Allergy Reactions Severity Noted Date [...] Comments PHYSICAL (COMPREHENSIVE) 2001 EXAM HPV VACCINES (1 of 3 - 2005 Female 3 Dose Series) PERTUSSIS VACCINE 2005 TETANUS VACCINE 2011 CERVICAL CANCER SCREENING 2015 INFLUENZA VACCINE 11/02/2016 Results Not on filefrom Last 3 Months
--- OUTSIDE RECORDS SUMMARY | 2017-03-06 14:12 | XMS REPORT | Summary of Care ---
Author Author [facility] Organization [facility] Address Unknown Phone Unavailable Care Team Providers Care Casing Crew Pusher Name Role Phone Rachael Johnson PCP Encounter Date(s): 05/20/11 - 01/16/[address] [id number] Discharge Disposition: Other Attending Physician: MD Eh, Saran Gallegos Vital Signs No data available for this section Problem List No Known Problems Allergies, Adverse Reactions, Alerts No Known Allergies Medications albuterol HFA 90 mcg/inh inhalation aerosol 2 puff, Inhaled, q4h, PRN Wheezing or Cough, # 2 inhaler, Refill(s) 0, Pharmacy : [facility] [id number] Start Date: 04/21/11 Status: Ordered Flovent HFA 110 mcg/inh inhalation aerosol 2 puff, Inhaled, BID, While in yellow zone. Rinse mouth after use., # 1 inhaler , Refill(s) 5, Pharmacy: [facility] [id number] Start Date: 04/21/11 Status: Ordered Results No data available for this section Immunizations Given and Recorded Vaccine Date Status Refusal Reason Flu vaccine reported-w/o vaccine record1 02/21/13 Recorded influenza virus, inactivated (TIV) 04/21/11 Given influenza virus, inactivated (TIV) 06/12/07 Given influenza virus, inactivated (TIV) 03/25/06 Given meningococcal conjugate (MCV) 09/21/10 Given meningococcal conjugate (MCV) 11/21/08 Given human papillomavirus (HPV) 09/21/10 Given human papillomavirus (HPV) 11/21/08 Given human papillomavirus (HPV) 06/12/07 Given hepatitis A pediatric (Hep A, Peds) 11/21/08 Given hepatitis A pediatric (Hep A, Peds) 06/12/07 Given tetanus/diph/pertussis(a), adult (Tdap) 06/12/07 Given varicella virus vaccine (FELICITAS) 06/12/07 Given varicella virus vaccine (FELICITAS) 10/21/97 Given measles/mumps/rubella virus (MMR) 01/13/99 Given measles/mumps/rubella virus (MMR) 07/19/95 Given poliovirus vaccine, live (OPV) 01/13/99 Given poliovirus vaccine, live (OPV) 07/19/95 Given poliovirus vaccine, live (OPV) 94 Given poliovirus vaccine, live (OPV) 94 Given dipht/tetanus/pertuss(a) (DTaP) 01/13/99 Given diph/haem b/pertus,whl/tetanus (DPT/Hib) 08/26/95 Given diph/haem b/pertus,whl/tetanus (DPT/Hib) 02/11/95 Given hepatitis B vaccine (Hep B) 94 Given hepatitis B vaccine (Hep B) 94 Given hepatitis B vaccine (Hep B) 94 Given diph/pertuss,whole cell/tetanus (DPT) 94 Given diph/pertuss,whole cell/tetanus (DPT) 94 Given haemophilus flu b (Hib) 94 Given haemophilus flu b (Hib) 94 Given 1Location History: [facility] Procedures No data available for this section Social History No data available for this section Assessment and Plan No data available for this section
--- OUTSIDE RECORDS SUMMARY | 2017-03-06 14:13 | XMS REPORT ---
Author Author [facility]STOP[facility] Address [address] [place] [address] Care Team Providers Care Childcare Administrator Name Role Phone THIAGO CRISTOPHER Unavailable PROBLEMS Type Condition ICD9-CM Code ELF30-LP Code Onset Dates Condition Status SNOMED Code Problem Anxiety F41.9 Active 16503821 Problem Dyspepsia R10.13 Active 467436673 Problem Menorrhagia with regular cycle N92.0 Active 245164338 Problem Mild intermittent asthma without complication J45.20 Active 885611150 Problem Dysthymia F34.1 Active 13827566 Problem Pain in right hand M79.641 Active 161258780 Problem Pain of left hand M79.642 Active 30307748 Problem Dysthymic disorder F34.1 Active 14262667 Problem Generalized anxiety disorder F41.1 Active 52849225 Problem Headache R51 Active 018708466 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 042056349 Problem Keloid scar L91.0 Active 99609907 Problem Insomnia, unspecified G47.00 Active 461731100 Problem Irregular menses N92.6 Active 13126841 Problem Primary insomnia F51.01 Active 4809223 ALLERGIES No Information SOCIAL HISTORY Never Assessed PLAN OF CARE VITAL SIGNS MEDICATIONS Medication Instructions Dosage Frequency Start Date End Date Duration Status Trintellix 20 mg Orally Once a day 1 tablet 24h May, 30 day(s) Active Trazodone HCl 50 mg Orally Once a day 1 tablet at bedtime as needed 24h May, 30 day(s) Active RESULTS No Results PROCEDURES No Known procedures IMMUNIZATIONS No Known Immunizations MEDICAL (GENERAL) HISTORY Type Description Date Medical History depression-- Medical History Hereditary elliptocytosis Surgical History Keloid Removal--Right ear
--- OUTSIDE RECORDS SUMMARY | 2017-03-06 14:13 | XMS REPORT ---
Author Author GLORIA MOHR Organization [facility] Address [address] [place] [address] Care Team Providers Care End Touching Machine Operator Name Role Phone GLORIA MOHR Unavailable PROBLEMS Type Condition ICD9-CM Code QCE29-PA Code Onset Dates Condition Status SNOMED Code Problem Anxiety F41.9 Active 63524758 Problem Dyspepsia R10.13 Active 720487461 Problem Menorrhagia with regular cycle N92.0 Active 442907391 Problem Mild intermittent asthma without complication J45.20 Active 401479850 Problem Dysthymia F34.1 Active 16310764 Problem Pain in right hand M79.641 Active 074003872 Problem Pain of left hand M79.642 Active 74398472 Problem Dysthymic disorder F34.1 Active 85036609 Problem Generalized anxiety disorder F41.1 Active 80042810 Problem Headache R51 Active 643146785 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 714523593 Problem Keloid scar L91.0 Active 01933051 Problem Insomnia, unspecified G47.00 Active 225121165 Problem Irregular menses N92.6 Active 03318469 Problem Primary insomnia F51.01 Active 6792701 ALLERGIES No Information SOCIAL HISTORY Never Assessed PLAN OF CARE Activity Details Follow Up , prn Reason:prescriptoon refill VITAL SIGNS MEDICATIONS Unknown Medications RESULTS No Results PROCEDURES Procedure Date Ordered Result Body Site Psychotherapy, patient &/family, 30 minutes, established patient Jun 01, 2016 IMMUNIZATIONS No Known Immunizations MEDICAL (GENERAL) HISTORY Type Description Date Medical History depression-- Medical History Hereditary elliptocytosis Surgical History Keloid Removal--Right ear
--- OUTSIDE RECORDS SUMMARY | 2017-03-06 14:13 | XMS REPORT ---
Author Author CRISTOPHER DAS [facility] Address [address] [place] [address] Care Team Providers Care Vocational Rehabilitation Supervisor Name Role Phone SANDEEP DASALEXIS Unavailable PROBLEMS Type Condition ICD9-CM Code RIG97-DA Code Onset Dates Condition Status SNOMED Code Problem Anxiety F41.9 Active 99463584 Problem Dyspepsia R10.13 Active 122270384 Problem Menorrhagia with regular cycle N92.0 Active 372145121 Problem Mild intermittent asthma without complication J45.20 Active 831271151 Problem Dysthymia F34.1 Active 22820234 Problem Pain in right hand M79.641 Active 127179886 Problem Pain of left hand M79.642 Active 24307807 Problem Dysthymic disorder F34.1 Active 88963384 Problem Generalized anxiety disorder F41.1 Active 75889610 Problem Headache R51 Active 695507645 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 301750199 Problem Keloid scar L91.0 Active 12725128 Problem Insomnia, unspecified G47.00 Active 281417089 Problem Irregular menses N92.6 Active 77510482 Problem Primary insomnia F51.01 Active 8116004 ALLERGIES Substance Reaction Event Type Date Status Treximet Unknown Drug Allergy May, Active Nsaids THROAT WAS SWELLING UP LAST TIME IN THE HOSPITAL Non Drug Allergy May, Active SOCIAL HISTORY Never Assessed PLAN OF CARE Activity Details Follow Up 4 Weeks Reason: VITAL SIGNS Height 60 in 2016-05-12 Weight 96.3 lbs 2016-05-12 Heart Rate 118 bpm 2016-05-12 Respiratory Rate 20 2016-05-12 BMI 18.81 kg/m2 2016-05-12 Blood pressure systolic 121 mmHg 2016-05-12 Blood pressure diastolic 91 mmHg 2016-05-12 MEDICATIONS Medication Instructions Dosage Frequency Start Date End Date Duration Status Seroquel 25 MG Orally Once a day 1 tablet 24h May, 30 day(s) Active Trintellix 10 mg orally once a day 1 tablet 24h May, 2016 Active Promethazine-Codeine 6.25-10 MG/5ML Orally every 6 hrs 5 ml as needed 6h Apr, Active Albuterol Sulfate 108 (90 Base) MCG/ACT Inhalation every 4 hrs 2 puff as needed 4h Apr, Active RESULTS No Results PROCEDURES No Known procedures IMMUNIZATIONS No Known Immunizations MEDICAL (GENERAL) HISTORY Type Description Date Medical History depression-- Medical History Hereditary elliptocytosis Surgical History Keloid Removal--Right ear
[2017-03-06] MEDS ORDERED: MAGNESIUM SULFATE DRIP 500 ML IV SCH (14:22)
[2017-03-06] MEDS ORDERED: FLUO10CA29 PO (14:24)
--- NOTE | 2017-03-06 14:48 | Discharge Summary ---
Diagnosis/Chief Complaint Date of Admission Mar 06, 2017 at 14:01 Date of Discharge Discharge Date: Mar 06, 2017 Admission Diagnosis Admission Diagnosis 1. Active labor 2. history of delivery 3. possible history of Sickle cell disease. Plan - patient "wants everything done" Understands that there is very high morbidity and mortality at this gestational age. has accepted transfer if we deem her safe for transfer Risks of delivery, up to 75 % mortality. High morbidity including intraventricular hemorrhage, leukomalacia, NEC, severe pulmonary disease, retinopathy of prematurity, infections, neurodevelopmental impairment. She still asks for everything to be done. States has allergy to NSAIDs. but this is vague and may only be sensitivity to ibuprofen. Desires dosage of indomethacin to "do everything you can". Discharge Diagnosis Same Reason Hospital Visit labor - see H&P Discharge Summary Hospital Course Hospital Course Patient was admitted in active labor. Contractions every 1-2 minutes with cervix 3/90/high. Breech by bedside Us. While here, she received 6 gm load of magnesium and then 2 gm/ hour. Then contractions slowed but did not stop. She then received 100 mg po indocin. She had some stomach upset but no emesis. This has resolved. She has history of possible allergy to ibuprofen but this is vague and not anaphylaxis. She accepts the risk of allergic reaction as she "wants everything done". Labs are pending and will be forwarded to [facility] as they become available She has been accepted for transfer to [facility] for management of delivery. Understands that there are risks for transfer, including but not limited to, delivery with complications, advancement of labor, air accident with injury and , of the fetus but understands that the benefits of transferring to a tertiary center with a NICU outweigh these risks. Transfer has been initiated and she will be transferred to Dr. Devan Ty at [facility] Labs Laboratory Tests 03/06/17 13:20: Urine Specific [place] 1.015L, Urine Protein 2+H, Urine Leukocyte Esterase 1+H, Urine RBC (Auto) 3+H, Urine WBC 5-10H, Urine Squamous Epithelial Cells 10-25H, Urine Crystals PRESENTH, Urine Amorphous Sediment [place] URATESH 03/06/17 13:41: White Blood Count 11.1H, Red Blood Count 3.86L, Hemoglobin 11.4L, Red Cell Distribution Width 15.5H, Neutrophils (%) (Auto) 81H, Neutrophils # (Auto) 9.0H 03/06/17 14:13: Procedures None. Discharge Physical Examination Allergies: Coded Allergies: NSAIDS (Non-Steroidal Anti-Inflamma (Unverified Allergy, Unknown, 02/04/14) Vitals & I&Os 109/72 pulse 88 Sat 99% FHT 144 General Appearance: Alert Respiratory: Clear to Auscultation Cardiovascular: Regular Rate Abdominal: Soft, Other (cervix prior to discharge/transfer /floating. Breech by beside US. ) Extremities: No Edema Skin: No Rashes Neuro: Normal Gait Psych/Mental Status: Mental Status NL Discussion & Recommendations Will transfer [facility] via [facility]. Has received betamethasone 12 Mg IM x 1 , ampicillin 2 gm IV, Indocin 100 mg po and Magnesium 6 gm/hour and running at 2 gm/hour. Rodriguez catheter is in place. No cervical change prior to discharge. Discharge Home Medications Reviewed and agree with Discharge Medication list on patient's Discharge Instruction sheet Instructions to Patient/Family Please see electronic discharge instructions given to patient. Clinical Quality Measures DVT/VTE Risk/Contraindication: Risk Factor Score Per Nursin RFS Level Per Nursing on Admit: 1=Low/No VTE PPX GERALD NUÑEZ DO Mar 06, 2017 14:48
[2017-03-06] MEDS ORDERED: INDOMETHACIN 25 MG (INDOCIN) CAP PO SCH (17:00)
[2017-03-07] MEDS ORDERED: BETAMETHASONE ACE/NA PHOS 6 MG/ML (CELESTONE SOLUSPAN) IM ONE (09:00)
[2017-03-07 21:11] LABS: HEPATITIS B SURFACE AB INDEX 3.64 mIU/mL (>=10.00)
[2017-03-08 08:12] LABS: HEPATITIS B SURFACE AB INTERP Non-Immune (Immune); HIV AG AB SCREEN Non-Reactive (Non-Reactive)
== END 2017-03-06 15:10 | disposition short-term general hospital (02) | DRG 778 ==
LOC: LDRP 12:53 → WSo 12:53 → LDRP 14:01 → WSo 14:01
PROVIDERS: ADMIT Obstetrics & Gynecology; ATTEND Obstetrics & Gynecology
DX: O60.02 Preterm labor without delivery, second trimester (principal); Z3A.23 23 weeks gestation of pregnancy; Z87.51 Personal history of pre-term labor; Z88.6 Allergy status to analgesic agent
CPT/HCPCS: 36415; 81000; 85025; 86703; 86706; 86762; 86803; 87088